=== PATIENT | male | born 1960 | race Caucasian/White ===

== ENCOUNTER 2017-03-08 17:34 | Emergency (ER) | payer BC ==
[2017-03-08 17:53] VITALS: BP 156/105
[2017-03-08] MEDS ORDERED: Albuterol 2.5 MG/3 ML NEB.SOL* (0.083%) INH ONE (18:16)
[2017-03-08] MEDS ORDERED: Ipratropium 0.5MG/2.5ML NEB* 0.5 MG/2.5 ML NEB.SOLN INH ONE (18:16)
--- NOTE | 2017-03-08 18:17 | UC ---
Respiratory Complaint HPI - HPI Summary HPI Summary: 56 yo male with cough x 2 weeks not productive no f/c chest tightness - History of Current Complaint Chief Complaint: UCRespiratory Stated Complaint: HEAD/CHEST COLD,SOB,WEAK Time Seen by Provider: 03/08/17 17:58 Hx Obtained From: Patient Onset/Duration: Gradual Onset, Lasting Weeks - 2 Timing: Constant Severity Initially: Mild Severity Currently: Moderate Pain Intensity: 2 Pain Scale Used: 0-10 Numeric Character: Cough: Nonproductive Aggravating Factors: Exertion, Deep Breaths Alleviating Factors: Nothing Associated Signs And Symptoms: Positive: Nasal Congestion - at onset, Sinus Discomfort - at onset - Allergies/Home Medications Allergies/Adverse Reactions: Allergies Allergy/AdvReac Type Severity Reaction Status Date / Time No Known Allergies Allergy Verified 03/08/17 17:48 PMH/Surg Hx/FS Hx/Imm Hx Previously Healthy: Yes - Surgical History Surgical History: None - Family History Known Family History: Positive: Hypertension - Social History Alcohol Use: Rare Substance Use Type: None Substance Use Comment - Amount & Last Used: Nicotine Gum Smoking Status (MU): Former Smoker - Immunization History Most Recent Influenza Vaccination: NONE 2017 Review of Systems Constitutional: Negative Skin: Negative Eyes: Negative ENT: Negative Respiratory: Cough Cardiovascular: Negative Gastrointestinal: Negative Genitourinary: Negative Motor: Negative Neurovascular: Negative Musculoskeletal: Negative Neurological: Negative Psychological: Negative Is Patient Immunocompromised?: No All Other Systems Reviewed And Are Negative: Yes Physical Exam Triage Information Reviewed: Yes Appearance: Well-Appearing, No Pain Distress, Well-Nourished Vital Signs: Initial Vital Signs Temp 98.7 F 03/08/17 17:48 Pulse 82 03/08/17 17:48 Resp 18 03/08/17 17:48 BP 156/105 03/08/17 17:48 Pulse Ox 97 03/08/17 17:48 Vital Signs Reviewed: Yes Eyes: Positive: Conjunctiva Clear ENT: Positive: Hearing grossly normal. Negative: Nasal congestion, Nasal drainage, Tonsillar exudate, Trismus, Muffled/hoarse voice Neck: Positive: Supple, Nontender, No Lymphadenopathy Respiratory: Positive: Wheezing. Negative: Lungs clear Cardiovascular: Positive: RRR, No Murmur Musculoskeletal: Positive: ROM Intact, No Edema Neurological Exam: Normal Neurological: Positive: Alert Psychological Exam: Normal Skin Exam: Normal UC Diagnostic Evaluation - Laboratory O2 Sat by Pulse Oximetry: 97 - normal/not hypoxic - Radiology Xray Interpretation: No Acute Changes Radiology Interpretation Completed By: Radiologist Re-Evaluation - Re-Evaluation First Eval Re-Evaluation Time: 19:06 Change: Improved - still wheezing/better air movement Respiratory Course/Dx - Differential Dx/Diagnosis Provider Diagnoses: acute bronchitis. bronchospasm Discharge - Discharge Plan Condition: Stable Disposition: HOME Prescriptions: Amoxicillin PO (*) [Amoxicillin 875 MG (*)] 875 mg PO BID #20 tab Prednisone [Deltasone] 40 mg PO DAILY #10 tab Patient Education Materials: Acute Bronchitis (ED), Bronchospasm (ED) Referrals: José Bruno [Primary Care Provider] - Additional Instructions: fluids mucinex recheck in about 4 days if not better your bp here was elevated and should get recheck in 1-2 mos
--- NOTE | 2017-03-08 18:46 | RAD ---
Indication: Cough for 2 weeks. 2 views of the chest including dual energy PA views demonstrate no mediastinal shift. Heart is of normal size and configuration. No pleural fluid, pneumonia or pneumothorax is noted although there is crowding of the vascular markings suggestive of poor inspiratory effort. IMPRESSION: Likely poor inspiratory effort with no evidence of active cardiopulmonary disease.
[2017-03-08] MEDS ORDERED: Albuterol HFA INHALER* 8 gm MDI INH ONE (19:02)
[2017-03-08] MEDS ORDERED: predniSONE TAB* 20 MG PO ONE (19:03)
[2017-03-08] MEDS ORDERED: predniSONE TAB* 10 MG ONE (19:27)
== END 2017-03-08 19:35 | disposition home or self-care (01) ==
LOC: UCCORT 17:34
DX: J20.9 Acute bronchitis, unspecified (principal); Z87.891 Personal history of nicotine dependence
CPT/HCPCS: 71020; 99213; A9270-GY; G0463; J7512; J7644

== ENCOUNTER 2017-09-13 19:11 | Emergency (ER) | payer BC ==
[2017-09-13 19:40] VITALS: BP 145/101
--- NOTE | 2017-09-13 20:11 | UC ---
Lower Extremity/Ankle HPI - HPI Summary HPI Summary: 57 y/o male presents to the urgent care c/o pain in right leg, radiates from the right buttock per patient, for past days. - History of Current Complaint Chief Complaint: UCLowerExtremity Stated Complaint: PAIN IN RIGHT BUTTOCK INTO LEG Time Seen by Provider: 09/13/17 20:09 Pain Intensity: 10 - Allergies/Home Medications Allergies/Adverse Reactions: Allergies Allergy/AdvReac Type Severity Reaction Status Date / Time No Known Allergies Allergy Verified 09/13/17 19:40 PMH/Surg Hx/FS Hx/Imm Hx - Surgical History Surgical History: None - Family History Known Family History: Positive: Hypertension - Social History Alcohol Use: Rare Substance Use Type: None Substance Use Comment - Amount & Last Used: Nicotine Gum Smoking Status (MU): Former Smoker - Immunization History Most Recent Influenza Vaccination: NONE 2016 Physical Exam - Summary Physical Exam Summary: Vital Signs Reviewed: Yes Appearance: Well-Appearing, Well-Nourished, female sitting in the examining table w/o any apparent distress. Eyes: Positive: Conjunctiva Clear - PERRLA, EOMI. ENT: Positive: Normal ENT inspection, Hearing grossly normal, Pharynx normal, TMs normal, Uvula midline Neck: Positive: Supple, Nontender, No Lymphadenopathy Respiratory: Positive: Chest non-tender, Lungs clear, Normal breath sounds, No respiratory distress Cardiovascular: Positive: RRR, No Murmur, Pulses Normal, Brisk Capillary Refill Abdomen Description: Positive: Nontender, No Organomegaly, Soft. Negative: CVA Tenderness (R), CVA Tenderness (L) Bowel Sounds: Positive: Present Musculoskeletal: Positive: Strength Intact, Other: - BACK: Patient walked into the urgent care room with symmetric ambulation, No signs of limping, antalgic, able to bear weight. No signs of trauma, No masses palpated. Point tenderness at the level of L5-S1, No CVAT, no flank ecchymosis . No sacroiliac notch tenderness, No saddle anesthesia.ROM: limited due to pain, Straight Leg Raise: negative. Patellar reflexes: brisk, symmetric Muscle strength lower extremities. Dorsiflexion/ plantar flexion of ankles. Heel/ toe walk. Lower extremities: Femoral, popliteal, posterior tibial, and dorsalis pedis pulses WNL. Pt refuse rectal exam Neurological: Positive: Alert, Muscle Tone Normal Psychological Exam: Normal Skin Exam: Normal Triage Information Reviewed: Yes Vital Signs: Initial Vital Signs Temp 99.2 F 09/13/17 19:35 Pulse 93 09/13/17 19:35 Resp 16 09/13/17 19:35 BP 145/101 09/13/17 19:35 Pulse Ox 98 09/13/17 19:35 Discharge - Discharge Plan Condition: Stable Disposition: HOME Prescriptions: Cyclobenzaprine TAB* [Flexeril 10 MG TAB*] 10 mg PO TID PRN #21 tab PRN Reason: Spasms - Back Naproxen TAB* [Naprosyn 250 mg TAB*] 250 mg PO Q8H PRN #30 tab PRN Reason: back pain predniSONE TAB* [Deltasone TAB*] 20 mg PO DAILY #8 tab Patient Education Materials: Acute Low Back Pain (ED), Low-Sodium Diet (ED), Degenerative Disc Disease (ED) Referrals: Leann Dupree MD [Medical Doctor] - 1 Week José Bruno [Primary Care Provider] - 1 Week Additional Instructions: 1- Please take Naproxen PO as directed after meals for pain. Take Prednisone PO starting tomorrow as directed to alleviate symptoms. You were given first dose tonight. 2- Take Flexeril PO as directed for muscle spasm. Please do not drive while taking the medication. 3- Wear a back support. Avoid strenuous exercise of heavy lifting. 4- Please follow up with Orthopedic Dr Dupree or your PCP in 1 week if not improvement of symptoms, for further management. 5-Your BP is elevated today. please decrease salt in your diet, monitor BP and if it continues to be elevated please f/u with your PCP for further management - Billing Disposition and Condition Condition: STABLE Disposition: HOME
--- NOTE | 2017-09-13 20:48 | RAD ---
Indication: Lower back pain. 5 views of lumbar spine demonstrate vertebral bodies to be normal in height. Disc space narrowing at L1-L2 with osteophyte formation is noted. No fracture is identified. IMPRESSION: Degenerative disc disease at L1-L2. No fracture is noted.
[2017-09-13] MEDS ORDERED: predniSONE TAB* 20 MG PO ONE (21:00)
[2017-09-13] MEDS ORDERED: Naproxen TAB* 250 MG PO ONE (21:00)
[2017-09-13] MEDS ORDERED: Cyclobenzaprine TAB* 10 MG PO ONE (21:00)
--- NOTE | 2017-09-15 15:22 | UC ---
Back Pain HPI - HPI Summary HPI Summary: 57 y/o male presents to the urgent care c/o lower back radiating to the RT side of his back and down his RT leg for the past 2 days. Pt reports he had similar symptoms about 1 month ago. He went to see Quiropractor and it improve his symptoms for few days. Pa states pain is 10/10 sharp when he is standing upr from a sitting position. Otherwise is constant about 6/10. He has been taking Aleve PO this morning. Pt denies fever, Saddle anesthesia, fecal or urinary incontinence, urinary symptoms, numbness or tingling sensation over the lower extremities, abdominal pain, N/V/D. - History of Current Complaint Chief Complaint: UCLowerExtremity Stated Complaint: PAIN IN RIGHT BUTTOCK INTO LEG Time Seen by Provider: 09/13/17 20:09 Hx Obtained From: Patient Onset/Duration: Gradual Onset, Lasting Weeks - 1 month, Worse Since - 2 days Timing: Intermittent, Lasting Seconds Severity Initially: Mild Severity Currently: Moderate Pain Intensity: 6 Pain Scale Used: 0-10 Numeric Back Pain: Is Discrete @ - lower back, Radiates To - rt leg Character: Sharp, Spasmodic Aggravating Factor(s): Movement, Lifting, Bending Alleviating Factor(s): OTC Meds Associated Signs And Symptoms: Positive: Negative. Negative: Swelling, Numbness , Tingling, Flank Pain, Bladder Incontinence, Bowel Incontinence, Weight Loss, Pain with Weight Bearing - Risk Factors AAA Risk Factors: Negative TAD Risk Factors: Negative Cauda Equina Risk Factors: Negative Epidural Abscess Risk Factors: Negative - Allergies/Home Medications Allergies/Adverse Reactions: Allergies Allergy/AdvReac Type Severity Reaction Status Date / Time No Known Allergies Allergy Verified 09/13/17 19:40 PMH/Surg Hx/FS Hx/Imm Hx Previously Healthy: Yes Cardiovascular History: Atrial Fibrillation - Surgical History Surgical History: None - Family History Known Family History: Positive: Hypertension - Social History Occupation: Employed Full-time Lives: With Family Alcohol Use: Rare Substance Use Type: None Substance Use Comment - Amount & Last Used: Nicotine Gum Smoking Status (MU): Former Smoker - Immunization History Most Recent Influenza Vaccination: NONE 2016 Review of Systems Constitutional: Negative Skin: Negative Eyes: Negative ENT: Negative Respiratory: Negative Cardiovascular: Negative Gastrointestinal: Negative Genitourinary: Negative Motor: Negative Neurovascular: Negative Musculoskeletal: Decreased ROM - lower back, Other: - lower back pain Neurological: Negative Psychological: Negative Is Patient Immunocompromised?: No All Other Systems Reviewed And Are Negative: Yes Physical Exam - Summary Physical Exam Summary: Vital Signs Reviewed: Yes Appearance: Well-Appearing, Well-Nourished, male sitting in the examining table w/o any apparent distress. Eyes: Positive: Conjunctiva Clear - PERRLA, EOMI. ENT: Positive: Normal ENT inspection, Hearing grossly normal, Pharynx normal, TMs normal, Uvula midline Neck: Positive: Supple, Nontender, No Lymphadenopathy Respiratory: Positive: Chest non-tender, Lungs clear, Normal breath sounds, No respiratory distress Cardiovascular: Positive: RRR, No Murmur, Pulses Normal, Brisk Capillary Refill Abdomen Description: Positive: Nontender, No Organomegaly, Soft. Negative: CVA Tenderness (R), CVA Tenderness (L) Bowel Sounds: Positive: Present Musculoskeletal: Positive: Strength Intact, BACK: Patient walked into the urgent care room with symmetric ambulation, No signs of limping, antalgic, able to bear weight. No signs of trauma, No masses palpated. Point tenderness at the level of L5-S1 w/ Rt side paraspinal muscle tenderness and muscle spasm at the same level , No CVAT, no flank ecchymosis . No sacroiliac notch tenderness, No saddle anesthesia.ROM: limited due to pain, Straight Leg Raise: negative. Patellar reflexes: brisk, symmetric Muscle strength lower extremities. Dorsiflexion/ plantar flexion of ankles. Heel/ toe walk. Lower extremities: Femoral, popliteal, posterior tibial, and dorsalis pedis pulses WNL. Pt refuse rectal exam Neurological: Positive: Alert, Muscle Tone Normal Psychological Exam: Normal Skin Exam: Normal Triage Information Reviewed: Yes Vital Signs: Initial Vital Signs Temp 99.2 F 09/13/17 19:35 Pulse 93 09/13/17 19:35 Resp 16 09/13/17 19:35 BP 145/101 09/13/17 19:35 Pulse Ox 98 09/13/17 19:35 Back Pain Course/Dx - Course Course Of Treatment: 57 y/o male presents to the urgent care c/o lower back radiating to the RT side of his back and down his RT leg for the past 2 days. Pt reports he had similar symptoms about 1 month ago. He went to see Quiropractor and it improve his symptoms for few days. Pa states pain is 10/10 sharp when he is standing upr from a sitting position. Otherwise is constant about 6/10. He has been taking Aleve PO this morning. Pt denies fever, Saddle anesthesia, fecal or urinary incontinence, urinary symptoms, numbness or tingling sensation over the lower extremities, abdominal pain, N/V/D.Hx obtained. Pt w/ RT side paraspinal muscle tenderness at the level of L1-L3 an point tenderness at the same level on examination. Lumbosacral X-ray ordered, Impression: Degenerative disce disease at L1-L2 and osteophite formation observed. No acute osseous injury observed. Pt RX Naproxen PO ordered at the clinic. Given by nurse. Pt tolerated well medication pain decrease. Pt Rx Naproxen PO, flexeril PO, Prednisone PO and given a PT referral. Patient was instructed to the f/u wit orthopedic in 1 week if symptoms do not improve or worsen. Pt's BP is elevated today advised to decrease salt in diet, monitor BP and f/u with PCP for further management. Patient is able to ambulate freely w/ o aid or limp. Plan of care was discussed with the patient and patient understands and agrees. All questions were answered at patient satisfaction. Pt left clinic hemodynamically stable. - Differential Dx/Diagnosis Differential Diagnosis/HQI/PQRI: Arthritis, Compressive Cord Syndrome, Fracture , Herniated Disc, Strain, Sprain Provider Diagnoses: 1- Acute back pain. 2-Degenerative disc disease L1-L2. 3- Back spasm. 4-Elevated BP w/ Hx of HTN Discharge - Sign-Out/Discharge Documenting (check all that apply): Discharge/Admit/Transfer - D/C home - Discharge Plan Condition: Stable Disposition: HOME Prescriptions: Cyclobenzaprine TAB* [Flexeril 10 MG TAB*] 10 mg PO TID PRN #21 tab PRN Reason: Spasms - Back Naproxen TAB* [Naprosyn 250 mg TAB*] 250 mg PO Q8H PRN #30 tab PRN Reason: back pain predniSONE TAB* [Deltasone TAB*] 20 mg PO DAILY #8 tab Patient Education Materials: Acute Low Back Pain (ED), Low-Sodium Diet (ED), Degenerative Disc Disease (ED) Referrals: Leann Dupree MD [Medical Doctor] - 1 Week José Bruno [Primary Care Provider] - 1 Week Additional Instructions: 1- Please take Naproxen PO as directed after meals for pain. Take Prednisone PO starting tomorrow as directed to alleviate symptoms. You were given first dose tonight. 2- Take Flexeril PO as directed for muscle spasm. Please do not drive while taking the medication. 3- Wear a back support. Avoid strenuous exercise of heavy lifting. 4- Please follow up with Orthopedic Dr Dupree or your PCP in 1 week if not improvement of symptoms, for further management. 5-Your BP is elevated today. please decrease salt in your diet, monitor BP and if it continues to be elevated please f/u with your PCP for further management - Billing Disposition and Condition Condition: STABLE Disposition: HOME
== END 2017-09-13 21:17 | disposition home or self-care (01) ==
LOC: UCCORT 19:11
DX: M79.604 Pain in right leg (principal); M51.36 Other intervertebral disc degeneration, lumbar region; Z87.891 Personal history of nicotine dependence
CPT/HCPCS: 72110; 99213; A9270-GY; G0463; J7512